=== PATIENT | male | born 1980 | race Caucasian/White ===

== ENCOUNTER 2017-03-19 21:39 | Emergency (ER) | payer OTHER | END 2017-03-19 23:02 | disposition home or self-care (01) | LOC: ER1 21:39 | DX: S60.221A Contusion of right hand, initial encounter (principal); Z87.891 Personal history of nicotine dependence; W20.8XXA Other cause of strike by thrown, projected or falling object, initial encounter; Y92.009 Unspecified place in unspecified non-institutional (private) residence as the place of occurrence of the external cause; Z88.0 Allergy status to penicillin | CPT/HCPCS: 73110; 73130; 99283 ==